=== PATIENT | male | born 1945 | race Caucasian/White ===

== ENCOUNTER 2016-10-21 13:57 | Observation (INO) | payer OTHER ==
[2016-10-21] VITALS (8 sets, daily range): BP systolic 128–139; BP diastolic 59–67; PULSE 68–76; RESP 18–20; TEMP 98–100.1; O2SAT 95–99
[~2016-10-21] VITALS: Ht 175.3 cm; Wt 86.0 kg
[2016-10-21 14:31] LABS: AUTOMATED NEUTROPHIL # 4.9 TH/MM3 (1.8-7.7); BASOPHIL # 0.1 TH/MM3 (0-0.2); BASOPHIL % 0.8 % (0.0-2.0); EOSINOPHIL # 0.2 TH/MM3 (0-0.4); EOSINOPHIL % 2.6 % (0.0-4.0); HEMATOCRIT 33.1 % (39.0-51.0); HEMO FLAGS DIFF FINAL; LYMPH % 9.6 % (9.0-44.0); LYMPHOCYTE # 0.7 TH/MM3 (1.0-4.8); MEAN CELL VOLUME 91.1 FL (80.0-100.0); MEAN CORPUSCULAR HEMOGLOBIN 32.1 PG (27.0-34.0); MEAN CORPUSCULAR HGB CONC 35.3 % (32.0-36.0); MONO % 15.2 % (0.0-8.0); NEUT % 71.8 % (16.0-70.0); PLATELET COUNT 252 TH/MM3 (150-450); RED BLOOD COUNT 3.63 MIL/MM3 (4.50-5.90); RED CELL DISTRIBUTION WIDTH 15.6 % (11.6-17.2); WHITE BLOOD COUNT 6.8 TH/MM3 (4.0-11.0)
--- NOTE | 2016-10-21 14:44 | RADRPT ---
EXAM DATE/TIME: 10/21/2016 14:29 [facility] COMPARISON: No previous studies available for comparison. INDICATIONS : Left sided chest pains x 1 day. MEDICAL HISTORY : Diabetes mellitus type II. Cardiovascular disease. SURGICAL HISTORY : CABG x 3 ENCOUNTER: Initial ACUITY: 1 day PAIN SCORE: 10/10 LOCATION: Bilateral chest FINDINGS: A single view of the chest demonstrates the lungs to be symmetrically aerated without evidence of mas s, infiltrate or effusion. There is some scarring in the left lower lung. The heart is mildly enlarg ed. There is evidence of previous cardiothoracic surgery.. Multiple old healed right-sided rib fractu res. CONCLUSION: No acute disease. Vic Bear MD on October 21, 2016 at 14:42 Board Certified Radiologist. This report was verified electronically.
--- NOTE | 2016-10-21 14:58 | PD ---
HPI Chief Complaint: Chest Pain Time Seen by Provider: 14:52 Travel History International Travel<30 days: No Contact w/Intl Traveler<30days: No Traveled to known affect area: No History of Present Illness HPI 71-year-old male that presents to the ED for evaluation of chest pain and cough and cold-like symptoms for the past 3 weeks. Per and patient she's been having congestion and sore throat with bad cough for the past 3 weeks. Symptoms have been worsening for the past 2 days when he is having nausea and vomiting as well as diarrhea. No blood in the stool. Per patient today when he was going to charge she was complaining of some chest pressure. He does have a history of CABG in the past and he got concerned because of the chest pressure. Per patient the chest pressure does not radiate but stays on the chest. He has nitroglycerin at home with he does not take it. He takes Coumadin and aspirin as well as other medications for high blood pressure, diabetes, high cholesterol. Patient has no fevers chills or sweats. Patient did get a flu shot this year. Patient also with her doctor regularly. Patient denies any abdominal pain other than cramping when he has to go have a stool. He has not been hospitalized recently. He denies any recent travel. He states that the cough is productive and yellowish. Chest pain came all of a sudden with no cough. PFSH Past Medical History Hx Anticoagulant Therapy: Yes Cardiovascular Problems: Yes Diabetes: Yes Social History Alcohol Use: No Tobacco Use: No Substance Use: No Allergies-Medications (Allergen,Severity, Reaction): Coded Allergies: Aspirin (Verified Allergy, Severe, Anaphylaxis, 10/21/16) Contrast Media (Verified Allergy, Severe, Hives, 10/21/16) Sulfa (Verified Allergy, Severe, Tachycardia, 10/21/16) Reported Meds & Prescriptions Reported Meds & Active Scripts Active Reported Trazodone (Trazodone HCl) 100 Mg Tab 100 Mg PO HS Losartan (Losartan Potassium) 25 Mg Tab 25 Mg PO HS Atorvastatin (Atorvastatin Calcium) 80 Mg Tab 80 Mg PO HS Pantoprazole (Pantoprazole Sodium) 40 Mg Tab 40 Mg PO DAILY Tamsulosin (Tamsulosin HCl) 0.4 Mg Cap 0.4 Mg PO DAILY Plavix (Clopidogrel Bisulfate) 75 Mg Tab 75 Mg PO DAILY Ranexa ER 12 HR (Ranolazine) 1,000 Mg Tab 1,000 Mg PO BID Warfarin 7.5 Mg Tab 7.5 Mg PO MO @ 1600 Warfarin 5 Mg Tab 5 Mg PO SUTUWETHFRSA @ 1600 Lantus Solostar Pen Inj (Insulin Glargine) 300 Unit/3 Ml Pen 50 Units SQ BID Review of Systems Except as stated in HPI: all other systems reviewed are Neg Physical Exam Narrative GENERAL: SKIN: Warm and dry. HEAD: Atraumatic. Normocephalic. EYES: Pupils equal and round. No scleral icterus. No injection or drainage. ENT: No nasal bleeding or discharge. Mucous membranes pink and moist. Tongue is midline. No uvula deviation. TMs are clear with no sign of infection or perforation. No uvula deviation. No lymphadenopathy noted. No meningeal signs noted. NECK: Trachea midline. No JVD. CARDIOVASCULAR: Regular rate and rhythm. No murmurs, S3, S4. Chest pain isn't reproducible with touch. RESPIRATORY: No accessory muscle use. Clear to auscultation. Breath sounds equal bilaterally. GASTROINTESTINAL: Abdomen soft, non-tender, nondistended. Hepatic and splenic margins not palpable. MUSCULOSKELETAL: Extremities without clubbing, cyanosis, or edema. No obvious deformities. Full range of motion of the upper and lower extremities bilaterally. 2+ pulses bilaterally. NEUROLOGICAL: Awake and alert. No obvious cranial nerve deficits. Motor grossly within normal limits. Five out of 5 muscle strength in the arms and legs. Normal speech. PSYCHIATRIC: Appropriate mood and affect; insight and judgment normal. Data Data Last Documented VS Vital Signs Date Time Temp Pulse Resp B/P Pulse Ox O2 Delivery O2 Flow Rate FiO2 10/21/16 15:14 18 97 Nasal Cannula 2 10/21/16 15:08 72 139/67 10/21/16 13:59 98.0 Orders Electrocardiogram (10/21/16 ) Complete Blood Count With Diff (10/21/16 14:09) Basic Metabolic Panel (Bmp) (10/21/16 14:09) Ckmb (Isoenzyme) Profile (10/21/16 14:09) Troponin I (10/21/16 14:09) Chest, Single Ap (10/21/16 14:09) Iv Access Insert/Monitor (10/21/16 14:09) Ecg Monitoring (10/21/16 14:09) Oxygen Administration (10/21/16 14:09) Oximetry (10/21/16 14:09) Hepatic Functional Panel (10/21/16 14:35) Lipase (10/21/16 14:35) Influenzae A/B Antigen (10/21/16 14:45) B-Type Natriuretic Peptide (10/21/16 14:52) Ondansetron Inj (Zofran Inj) (10/21/16 15:00) Albuterol Neb (Albuterol Neb) (10/21/16 15:00) Morphine Inj (Morphine Inj) (10/21/16 15:00) Sodium Chlor 0.9% 1000 Ml Inj (Ns 1000 M (10/21/16 14:59) CKMB (10/21/16 14:21) CKMB% (10/21/16 14:21) I-Stat Profile (10/21/16 15:38) Sodium Chlor 0.9% 1000 Ml Inj (Ns 1000 M (10/21/16 15:38) Labs Laboratory Tests Test 10/21/16 14:21 White Blood Count 6.8 TH/MM3 Red Blood Count 3.63 MIL/MM3 Hemoglobin 11.7 GM/DL Hematocrit 33.1 % Mean Corpuscular Volume 91.1 FL Mean Corpuscular Hemoglobin 32.1 PG Mean Corpuscular Hemoglobin 35.3 % Concent Red Cell Distribution Width 15.6 % Platelet Count 252 TH/MM3 Mean Platelet Volume 9.4 FL Neutrophils (%) (Auto) 71.8 % Lymphocytes (%) (Auto) 9.6 % Monocytes (%) (Auto) 15.2 % Eosinophils (%) (Auto) 2.6 % Basophils (%) (Auto) 0.8 % Neutrophils # (Auto) 4.9 TH/MM3 Lymphocytes # (Auto) 0.7 TH/MM3 Monocytes # (Auto) 1.0 TH/MM3 Eosinophils # (Auto) 0.2 TH/MM3 Basophils # (Auto) 0.1 TH/MM3 CBC Comment DIFF FINAL Differential Comment Sodium Level 140 MEQ/L Potassium Level 5.5 MEQ/L Chloride Level 109 MEQ/L Carbon Dioxide Level 25.1 MEQ/L Anion Gap 6 MEQ/L Blood Urea Nitrogen 26 MG/DL Creatinine 1.62 MG/DL Estimat Glomerular Filtration 42 ML/MIN Rate Random Glucose 108 MG/DL Calcium Level 8.8 MG/DL Total Bilirubin 0.5 MG/DL Direct Bilirubin 0.1 MG/DL Indirect Bilirubin 0.4 MG/DL Aspartate Amino Transf 41 U/L (AST/SGOT) Alanine Aminotransferase 37 U/L (ALT/SGPT) Alkaline Phosphatase 145 U/L Total Creatine Kinase 187 U/L Creatine Kinase MB 0.8 NG/ML Troponin I LESS THAN 0.02 NG/ML B-Type Natriuretic Peptide 35 PG/ML Total Protein 7.1 GM/DL Albumin 3.8 GM/DL Lipase 61 U/L MDM Medical Decision Making Medical Screen Exam Complete: Yes Emergency Medical Condition: Yes Medical Record Reviewed: Yes Interpretation(s) CBC & BMP Diagram 10/21/16 14:21 troponin negative CKMB negative LFTs and Lipase WNL Last Impressions Chest X-Ray 10/21/16 1409 Signed Impressions: Service Date/Time: Friday, October 21, 2016 14:29 - CONCLUSION: No acute disease. Vic Bear MD BNP WNL flu negative Differential Diagnosis Acute abdomen versus STEMI versus an STEMI versus chest pain versus pneumonia versus URI versus influenza versus CHF versus pancreatitis Narrative Course 71-year-old male that presents to the ED for evaluation of chest pain and cold like symptoms. Patient was properly examined and was found to have signs and symptoms consistent appears to be chest pain and cold-like symptoms. The condition status for labs and imaging. EKG and cardiac workup was done as well. Patient is agreeable with plan. Labs and imaging showed slightly elevated potassium but appears to have hemolyzed and some dehydration but otherwise unremarcable. Patient still complains of the chest pain. Patient did get some relief from the albuterol inhaler. Before she patient does have risk factors for cardiac chest pain and per patient the chest pain he feels like a pressure and the main thing that brought him here. At this point to me does look like patient appears to have bronchitis. 4 say he does have severe risk factors for cardiac disease including diabetes, hypertension, previous CABG , high cholesterol. Case was discussed in my attending Dr. Dickens who was made aware of all findings and history and PE, who recommends i-STAT BMP and if BMP within normal limits patient can be admitted to the chest pain center for further workup of the chest pain. Procedures EKG Prior to Arrival: No Diagnosis Primary Impression: Chest pain in adult Admitting Information Admitting Physician Requests: Observation Bayron Banuelos Oct 21, 2016 14:58
[2016-10-21] MEDS ORDERED: SODIUM CHLOR 0.9% 1000 ML INJ 1,000 ML IV SCH ×2 (14:59→15:38)
[2016-10-21] MEDS ORDERED: RESP: ALBUTEROL 2.5 MG/3 ML NEB (SCH) INH ONE (15:00)
[2016-10-21] MEDS ORDERED: ONDANSETRON HCL 4 MG/2 ML VIAL IVP ONE (15:00)
[2016-10-21] MEDS ORDERED: MORPHINE SULFATE 4 MG/ML INJ IV PUSH ONE (15:00)
[2016-10-21 15:03] LABS: ANION GAP 6 MEQ/L (5-15); BICARBONATE 25.1 MEQ/L (21.0-32.0); BLOOD UREA NITROGEN 26 MG/DL (7-18); CHLORIDE 109 MEQ/L (98-107); GLOMERULAR FILTRATION RATE 42 ML/MIN (>89); POTASSIUM 5.5 MEQ/L (3.5-5.1); SODIUM (NA) 140 MEQ/L (136-145)
[2016-10-21 15:05] LABS: CREATINE KINASE 187 U/L (39-308)
[2016-10-21 15:17] LABS: CKMB 0.8 NG/ML (0.5-3.6)
[2016-10-21 15:23] LABS: INDIRECT BILIRUBIN 0.4 MG/DL (0.0-0.8); TOTAL BILIRUBIN ADULT 0.5 MG/DL (0.2-1.0)
[2016-10-21] MEDS ORDERED: WARF-21 PO (15:29)
[2016-10-21] MEDS ORDERED: LANTINJ SQ (15:29)
[2016-10-21] MEDS ORDERED: TAMS0.4C4 PO (15:29)
[2016-10-21] MEDS ORDERED: TRAZ100T4 PO (15:29)
[2016-10-21] MEDS ORDERED: ATOR1TAB18 PO (15:29)
[2016-10-21] MEDS ORDERED: PANT40TA3 PO (15:29)
[2016-10-21] MEDS ORDERED: WARF-23 PO (15:29)
[2016-10-21] MEDS ORDERED: PLAV75TA29 PO (15:29)
[2016-10-21] MEDS ORDERED: RANE1000 PO (15:29)
[2016-10-21] MEDS ORDERED: LOSA25TA PO (15:29)
[2016-10-21 16:24] LABS: I-STAT POTASSIUM 4.7 MMOL/L (3.5-4.9)
[2016-10-21] MEDS ORDERED: NITROGLYCERIN 0.4 MG SL 25 TABS/BTL SL PRN (16:45)
[2016-10-21] MEDS ORDERED: ONDANSETRON HCL 4 MG/2 ML VIAL IV PRN (16:45)
[2016-10-21] MEDS ORDERED: ACETAMINOPHEN 500 MG CPLT PO PRN (16:45)
[2016-10-21] MEDS ORDERED: SODIUM CHLORIDE 0.9% FLUSH 5 ML FLUSH IVF PRN (16:45)
[2016-10-21] MEDS ORDERED: DEXTROSE 50% IN WATER 50 ML VIAL(D50) IV PUSH PRN (17:45)
[2016-10-21] MEDS ORDERED: RESP: ALBUTEROL 2.5 MG/3 ML NEB (PRN) NEB (17:45)
[2016-10-21] MEDS ORDERED: GLUCAGON 1 MG/ML VIAL OTHER PRN (17:45)
[2016-10-21] MEDS: SODIUM CHLOR 0.45% 1000 ML INJ 1,000 ML IV SCH (17:45)
--- NOTE | 2016-10-21 17:55 | EKG ---
Date Performed: 10/21/2016 Time Performed: 14:30:10 PTAGE: 71 years EKG: Sinus rhythm NORMAL ECG NO PREVIOUS TRACING DOCTOR: Ang Glynn Interpretating Date/Time 10/21/2016 17:54:26
[2016-10-21 17:57] LABS: CREATINE KINASE 104 U/L (39-308)
[2016-10-21 18:09] LABS: CKMB 1.3 NG/ML (0.5-3.6)
[2016-10-21 19:28] LABS: APTT (PATIENT) 38.9 SEC (24.3-30.1); INTERNATIONAL NORMALIZED RATIO 1.8 RATIO; PROTHROMBIN TIME - PATIENT 20.6 SEC (9.8-11.6)
[2016-10-21] MEDS ORDERED: LEVOFLOXACIN 500 MG PREMIX INJ 100 ML IV SCH (20:00)
[2016-10-21] MEDS ORDERED: WARFARIN SOD 7.5 MG TAB PO ONE (20:00)
[2016-10-21] MEDS: RANOLAZINE 500 MG EXTENDED RELEASE TAB PO SCH (20:32)
[2016-10-21] MEDS: SODIUM CHLORIDE 0.9% FLUSH 5 ML FLUSH IVF SCH (20:33)
[2016-10-21] MEDS: INSULIN ASPART SUPPLEMENTAL SCALE SQ SCH (20:43)
[2016-10-21] MEDS ORDERED: ATORVASTATIN 80 MG TAB PO SCH (21:00)
[2016-10-21] MEDS ORDERED: LOSARTAN 25 MG TAB PO SCH (21:00)
[2016-10-21] MEDS ORDERED: traZODone HCL 100 MG TAB PO SCH (21:00)
--- NOTE | 2016-10-21 21:09 | EKG ---
Date Performed: 10/21/2016 Time Performed: 17:24:22 PTAGE: 71 years EKG: Sinus rhythm NONSPECIFIC T-WAVE ABNORMALITY POOR PRECORDIAL R-WAVE PROGRESSION ABNORMAL ECG PREVIOUS TRACING : 10/21/2016 14.30 DOCTOR: Song Cancino Interpretating Date/Time 10/21/2016 21:07:09
[2016-10-21 21:21] LABS: CREATINE KINASE 101 U/L (39-308)
[2016-10-21 21:33] LABS: CKMB 0.9 NG/ML (0.5-3.6)
[2016-10-21] MEDS ORDERED: WARFARIN SOD 4 MG TAB PO ONE (22:00)
[2016-10-21] MEDS: RESP: ALBUTEROL 2.5 MG/IPRATROPIUM 0.5 MG NEB (SCH) NEB (22:50)
[2016-10-22] VITALS (8 sets, daily range): BP systolic 101–139; BP diastolic 61–70; PULSE 66–93; RESP 16–20; TEMP 97.7–105.3; O2SAT 96–98
[2016-10-22] MEDS ORDERED: ACETAMINOPHEN 325 MG TAB PO PRN (00:45)
[2016-10-22] MEDS: guaiFENesin/DEXTROMETHORPHAN 200 MG/20 MG/10 ML CUP PO PRN ×2 (01:00→05:43)
[2016-10-22] MEDS: INSULIN ASPART SUPPLEMENTAL SCALE SQ SCH ×2 (05:43→13:00)
[2016-10-22] MEDS: SODIUM CHLOR 0.45% 1000 ML INJ 1,000 ML IV SCH (05:45)
[2016-10-22 05:46] LABS: BICARBONATE 22.5 MEQ/L (21.0-32.0); POTASSIUM 4.7 MEQ/L (3.5-5.1)
[2016-10-22] MEDS: RESP: ALBUTEROL 2.5 MG/IPRATROPIUM 0.5 MG NEB (SCH) NEB ×2 (05:55→07:27)
--- NOTE | 2016-10-22 08:40 | MH ---
cc: ALEXANDR CANCINO DATE OF ADMISSION 10/21/2016 DATE OF 1945 CHIEF COMPLAINT Chest pain and progressive cough for three weeks. HISTORY OF PRESENT ILLNESS This is a 71-year-old patient with known coronary artery disease including multiple stents and open heart surgery May of 2015. Presents with a cough for the past three weeks and yesterday he developed nausea, vomiting and diarrhea and decided come to the emergency room for further evaluation. The patient does have chronic left anterior chest pain that radiates to his left shoulder. He states this is constant and has been there for approximately four years. Normally this pain is rated at a 4/10, however, the last two days this pain has been more on a level of 9/10 and he became quite worried and decided to come to the emergency room for all of the above complaints. PAST MEDICAL HISTORY 1. Benign prostatic hypertrophy. 2. Diabetes. 3. Gastroesophageal reflux disease. 4. Coronary artery disease. PAST SURGICAL HISTORY 1. CABG three vessels in 06/07. 2. He has had a cyst removed on his back as well. SOCIAL HISTORY He recently moved here in 2014 from [place]. He is , retired. He quit smoking at age 65, prior to that he smoked one-pack of cigarettes since age 16. Has not drank alcohol in 35 years. Denies any illegal drug use. Does have known hypertension, diabetes and is taking a cholesterol medication although this is most likely for preventative measures due to his coronary artery disease. PAST CARDIAC TESTING The patient is known to Dr. Plaza. visit was in the fall, although his insurance has changed to [employer] and he has plans to follow with [facility]. In October of 2014 he went to [facility] with a complaint of shortness of breath and he was admitted to Dr. Plaza and at that time she put two stents in. In May of 2015 he had a CABG times three and in January of 2016 Dr. Keita put a cardiac stent in his left main as that was 100% blocked. Six weeks later in February of 2016 another stent was placed although his cardiac stent card does not indicate where the stent was placed. Since February of 2016 he has followed with Dr. Plaza and has had a chemical stress test which was normal. CURRENT MEDICATIONS 1. Tamsulosin 0.4 mg daily. 2. Losartan 20 mg q.h.s. 3. Warfarin 5 mg on Saturday, Saturday, Saturday, , Saturday and Saturday. 4. Warfarin 7.5 mg on Saturday. 5. Trazodone 100 mg q.h.s. 6. Ranexa extended release 1000 mg b.i.d. 7. Atorvastatin 80 mg q.h.s. 8. Lantus 50 units b.i.d. 9. Plavix 75 mg daily. 10. Protonix 40 mg daily. 11. Also takes iron 325 mg daily. ALLERGIES HE HAS A SEVERE ALLERGY TO ASPIRIN WHICH CAUSES SWELLING AND ALSO ALLERGIC TO SULFA AND CONTRAST MEDIA. REVIEW OF SYSTEMS GENERAL: Reports a viral illness for the past three weeks with a generalized fatigue. He has followed with his primary care provider Dr. Darnell and she has prescribed him Robitussin and guaifenesin without relief. HEENT: Had a headache yesterday, this is improved. There is no vision changes. No dysphagia. CARDIOVASCULAR: As stated above. No palpitations or intermittent leg pain or dizziness. RESPIRATORY: No shortness of breath. Has had a cough for the past three weeks despite Robitussin and Mucinex and symptom management. He has been trying to increase his fluid intake. No wheeze or hemoptysis. ABDOMEN: Has had nausea, vomiting and diarrhea since yesterday evening. Yesterday he had three loose stools, this was in the evening hours. Has not since had diarrhea or any loose stools and vomited three times today. No blood in the stool. Reports dark stools, recently seen primary care provider. She was concerned with the dark stools and an occult blood was completed in the office and it was negative. There attributing the dark stools to his iron tablets. GENITOURINARY: No dysuria or urgency, frequency or hematuria. EXTREMITIES: No lower leg edema. MUSCULOSKELETAL: No change in range of motion. He reports chronic left anterior and left shoulder pain as stated above, although this is worse in the last couple of days. NEUROLOGICAL: No difficulty with balance, motor or sensory deficits or loss of consciousness. PHYSICAL EXAMINATION VITAL SIGNS: On admission temperature 98, pulse 76, respiratory 20 and blood pressure 138/64 and 95% on room air. Most recent set of vitals has a temperature 100.1, pulse 76, respiratory 18, blood pressure 131/62 and 96% on O2 at 2 liters. GENERAL: He is alert, well-nourished, well-developed in no acute distress pleasant male. HEENT: Head is normocephalic, atraumatic. Eyes, pupils are equal and round. Sclerae clear. NECK: Supple. Trachea is midline. CARDIOVASCULAR: Regular rate and rhythm without murmur, rub or gallop. S1-S2. No S3. No S4. LUNGS: He has rhonchi throughout. No wheezing. Symmetrical chest rise. Able to speak in full sentences. ABDOMEN: Soft, tender throughout not just diffusely. Nondistended. No masses. Positive bowel tones. EXTREMITIES: Pulses +2 times four. There is no dependent edema. MUSCULOSKELETAL: Normal tone x4. No obvious deformities. NEUROLOGICAL: Cranial nerves II-XII grossly intact. Motor strength 5/5. PSYCHIATRIC: He is alert, oriented x3. Has a pleasant affect. Appropriate to mood, insight and judgment. SKIN: Normal turgor and texture. Skin is warm and dry. LABORATORY CBC has a hemoglobin of 11.7 and hematocrit of 33.1. Neutrophil percentage is 71.8 and a mono percentage of 15.2. This is repeated with point of care hemoglobin which was 10.9 and point of care hematocrit of 32. Chemistry has an alkaline phosphate of 145, AST of 41. Lipase is 61, otherwise unremarkable. A creatinine of 1.62. Two sets of cardiac enzymes are negative. INR is 1.80, APTT is 38.9. IMAGING Chest x-ray read by radiologist has a conclusion of no acute disease. Two EKGs show a normal sinus rhythm with mild ST depressions lateral leads. ASSESSMENT/PLAN 1. Chest pain. Patient has been admitted to the chest pain center. Will undergo three sets of EKGs and cardiac enzymes and be monitored overnight. He was seen and evaluated by Dr. Alexandr Cancino. Discussed the likelihood both with the patient and his who is at bedside of completing another chemical stress test in the a.m. They are agreeable to this plan of care. 2. Bronchitis. Levaquin 500 mg IV daily, respiratory treatments q.6 h scheduled and q.2h as needed. The patient has been informed to instruct nurse if he feels he needs additional respiratory treatments. 3. Renal insufficiency. The patient follows with Dr. Anthony. We will repeat BMP in the a.m. 4. Dehydration. Two liters of saline provided by emergency room physician and throughout the evening. He will receive half normal saline at 100 an hour. 5. Anemia. Will continue his iron and encourage him to follow up with his primary care provider. Dictated by: LUCHO Hernández MD JG Alicea/SELAM /8:27 PM /8:38 AM
[2016-10-22] MEDS: SODIUM CHLORIDE 0.9% FLUSH 5 ML FLUSH IVF SCH (08:56)
[2016-10-22] MEDS: RANOLAZINE 500 MG EXTENDED RELEASE TAB PO SCH (08:57)
[2016-10-22] MEDS ORDERED: CLOPIDOGREL 75 MG TAB PO SCH (09:00)
[2016-10-22] MEDS ORDERED: PANTOPRAZOLE SOD 40 MG DELAYED RELEASE TAB PO SCH (09:00)
[2016-10-22] MEDS ORDERED: REGADENOSON INJ 0.4 MG/5 ML SYR ONE (10:28)
--- NOTE | 2016-10-22 12:02 | RADRPT ---
EXAM DATE/TIME: 10/22/2016 09:52 [facility] COMPARISON: CHEST SINGLE AP, October 21, 2016, 14:29. INDICATIONS : Left chest pain. Angina. DOSE: 25.4 mCi Tc99m Myoview at stress. 8.5 mCi Tc99m Myoview at rest. 0.4 mg Lexiscan STRESS SYMPTOMS: Asymptomatic. EJECTION FRACTION: 50% MEDICAL HISTORY : Hypertension. Hypercholesterolemia. Diabetes mellitus type 2. Coronary artery disease SURGICAL HISTORY : CABG ENCOUNTER: Initial ACUITY: 1 week PAIN SCALE: 4/10 LOCATION: Left anterior chest pain TECHNIQUE: The patient underwent pharmacologic stress with infusion of prescribed dose. Continuous ECG tracing was monitored during stress. Gated SPECT imaging was performed after stress and conventional SPECT i maging was performed at rest. The examination was performed on a SPECT/CT scanner, both attenuation and non-corrected datasets were reviewed. FINDINGS: DISTRIBUTION: Wall of maximum perfusion is the anterior lateral wall PERFUSION STUDY: The pattern of perfusion at stress suggests a small perfusion defect in the anterior wall towards the apex with probable redistribution. GATED STUDY: There is intact wall motion and thickening with questionable hypokinesia in the anterior wall towards the apex CONCLUSION: Abnormal study suggesting a small area of perfusion defect with redistribution in the anterior wall t owards the apex with probable mild hypokinesia in this area RISK CATEGORY: Intermediate (1-3% Annual Mortality Rate) Yoan Williamson MD on October 22, 2016 at 11:58 Board Certified Radiologist. This report was verified electronically.
[2016-10-22 12:07] LABS: HEMOGLOBIN A1a 1.2 %; HEMOGLOBIN LA1C 1.9 %; HEMOGLOBIN P3 4.4 %
[2016-10-22] MEDS ORDERED: LEVA500T PO (12:34)
--- NOTE | 2016-10-22 12:35 | HHI.DCPOC ---
Discharge Care Plan Diagnosis: (1) Chest pain (2) CAD (coronary artery disease) (3) Hx of CABG (4) H/O heart artery stent (5) Hypertension (6) DM (diabetes mellitus) (7) Hyperlipidemia Goals to Promote Your Health * To prevent worsening of your condition and complications * To maintain your health at the optimal level Directions to Meet Your Goals Take your medications as prescribed Follow your dietary instruction Follow activity as directed Keep your appointments as scheduled Take your immunizations and boosters as scheduled If your symptoms worsen call your PCP, if no PCP go to Urgent Care Center or Emergency Room Smoking is Dangerous to Your Health. Avoid second hand smoke Call the 24-hour hour crisis hotline for domestic abuse at Soham Lyles Oct 22, 2016 12:35
--- NOTE | 2016-10-22 13:38 | EKG ---
Date Performed: 10/21/2016 Time Performed: 21:29:05 PTAGE: 71 years EKG: Sinus rhythm NONSPECIFIC T-WAVE ABNORMALITY ABNORMAL ECG PREVIOUS TRACING : 10/21/2016 17.24 Since previous tracing, no significant change noted DOCTOR: Balwinder Ghotra Interpretating Date/Time 10/22/2016 13:37:12
--- NOTE | 2016-10-22 13:46 | TR ---
Date Performed: 10/22/2016 Time Performed: 10:28:03 DOCTOR: Balwinder Ghotra DRUG LIST: CLINICAL HISTORY: CHEST PAIN REASON FOR TEST: CHEST PAIN REASON FOR ENDING: OBSERVATION: CONCLUSION: Lexiscan stress test was performed under standard four minute protocol. Radionuclid e was injected one minute prior to ending the test. No electrocardiographic abormalities were present to suggest ischemia. Nuclear imaging and interpretation are pending. COMMENTS:
[2016-10-22] MEDS ORDERED: WARFARIN SOD 7.5 MG TAB PO SCH (16:00)
== END 2016-10-22 17:26 | disposition home or self-care (01) ==
LOC: NEPC 13:57 → NEDA 16:16 → NEPHCDU 17:38
PROVIDERS: ADMIT Family Medicine; ATTEND Family Medicine
DX: R07.9 Chest pain, unspecified (principal); J40 Bronchitis, not specified as acute or chronic; J02.9 Acute pharyngitis, unspecified; E86.0 Dehydration; N28.9 Disorder of kidney and ureter, unspecified; D64.9 Anemia, unspecified; I25.10 Atherosclerotic heart disease of native coronary artery without angina pectoris; I10 Essential (primary) hypertension; E11.9 Type 2 diabetes mellitus without complications; E78.5 Hyperlipidemia, unspecified; Z95.1 Presence of aortocoronary bypass graft; Z95.5 Presence of coronary angioplasty implant and graft; Z79.01 Long term (current) use of anticoagulants
CPT/HCPCS: 71010; 78452; 80048; 80076; 82435; 82550; 82552; 82947; 82948; 83036; 83690; 83880; 84132; 84295; 84484; 84520; 85025; 85610; 85730; 87804; 93005; 93017; 94640; 94664; 96361; 96374; 96375; 99285; A9502; G0378; J1815; J1956; J2270; J2405; J2785; J7030; J7613

== ENCOUNTER 2016-11-20 09:38 | Emergency (ER) | payer OTHER ==
[~2016-11-20] VITALS: Ht 175.3 cm; Wt 100.0 kg
[~2016-11-20 09:38] MED LIST: ATOR1TAB18 PO; LANTINJ SQ; LEVA500T PO; LOSA25TA PO; PANT40TA3 PO; PLAV75TA29 PO; RANE1000 PO; TAMS0.4C4 PO; TRAZ100T4 PO; WARF-21 PO; WARF-23 PO
[2016-11-20 09:41] VITALS: BP 130/65; PULSE 82; RESP 14; TEMP 97.9; O2SAT 98
[2016-11-20] MEDS ORDERED: FERR65TA PO (10:40)
--- NOTE | 2016-11-20 10:50 | PD ---
HPI Chief Complaint: Laceration/Skin Injury Time Seen by Provider: 10:05 Travel History International Travel<30 days: No Contact w/Intl Traveler<30days: No Traveled to known affect area: No History of Present Illness HPI 71-year-old man, otherwise pretty healthy, presents to the emergency department complaining of bleeding from a small laceration on his left ear from their puppy. Abdomen yesterday. Blood tonight. He is on warfarin. Hepatic INR checked week and a half ago and was 2.5. He's been on a steady dose of warfarin for some time now and gets his INRs checked every month. History Past Medical History Narrative Medical Diabetes CAD, CABG History of PE post CABG, on warfarin Social History Alcohol Use: No Tobacco Use: No Allergies-Medications (Allergen,Severity, Reaction): Coded Allergies: Aspirin (Verified Allergy, Severe, Anaphylaxis, 11/20/16) Contrast Media (Verified Allergy, Severe, Hives, 11/20/16) Sulfa (Verified Allergy, Severe, Tachycardia, 11/20/16) Reported Meds & Prescriptions Reported Meds & Active Scripts Active Reported Feosol (Ferrous Sulfate) 65 Mg Tab 65 Mg PO DAILY Trazodone (Trazodone HCl) 100 Mg Tab 100 Mg PO HS Losartan (Losartan Potassium) 25 Mg Tab 25 Mg PO HS Atorvastatin (Atorvastatin Calcium) 80 Mg Tab 80 Mg PO HS Pantoprazole (Pantoprazole Sodium) 40 Mg Tab 40 Mg PO DAILY Tamsulosin (Tamsulosin HCl) 0.4 Mg Cap 0.4 Mg PO DAILY Plavix (Clopidogrel Bisulfate) 75 Mg Tab 75 Mg PO DAILY Ranexa ER 12 HR (Ranolazine) 1,000 Mg Tab 1,000 Mg PO BID Warfarin 7.5 Mg Tab 7.5 Mg PO MO @ 1600 Warfarin 5 Mg Tab 5 Mg PO SUTUWETHFRSA @ 1600 Lantus Solostar Pen Inj (Insulin Glargine) 300 Unit/3 Ml Pen 50 Units SQ BID Review of Systems Except as stated in HPI: all other systems reviewed are Neg Physical Exam Narrative Gen.: Well-appearing 71-year-old man, no acute distress HEENT: Tiny 4 mm laceration, superficial, well approximated on the left earlobe , no active bleeding. Data Data Last Documented VS Vital Signs Date Time Temp Pulse Resp B/P Pulse Ox O2 Delivery O2 Flow Rate FiO2 11/20/16 09:51 73 18 11/20/16 09:41 97.9 130/65 98 MDM Medical Decision Making Medical Screen Exam Complete: Yes Emergency Medical Condition: Yes Differential Diagnosis Laceration, bleeding, other Narrative Course Medical decision making 71-year-old male with a tiny laceration of the left. Apparently blood a lot overnight. He is on warfarin. Looks well. I applied some glue to help the wound stay approximated. Patient tolerated well. Procedures Procedure Narrative LACERATION LOCATION: Left earlobe LENGTH: 3 mm REPAIR: Small airway was applied over top of it already approximated left earlobe laceration. Patient tolerated well. Diagnosis Primary Impression: Laceration of left earlobe Qualified Code: S01.312A - Laceration of left earlobe, initial encounter Additional Instructions: Keep wound clean and dry. Do not apply antibiotic ointment to the wound as it will dissolve the glue. Wash gently with soap and water. Disposition: 01 DISCHARGE HOME Condition: Stable Tomi Diaz MD Nov 20, 2016 10:50
== END 2016-11-20 11:16 | disposition home or self-care (01) ==
LOC: NEPC 09:38
DX: S01.312A Laceration without foreign body of left ear, initial encounter (principal); H92.22 Otorrhagia, left ear; E11.9 Type 2 diabetes mellitus without complications; W54.8XXA Other contact with dog, initial encounter; Z79.01 Long term (current) use of anticoagulants
CPT/HCPCS: 12011